=== PATIENT | female | born 1995 | race Hispanic/Latino ===

== ENCOUNTER 2023-02-27 15:18 | Emergency (ER) | payer OTHER, SELFPAY ==
[2023-02-27 15:21] VITALS: BP 121/69; PULSE 85; RESP 16; TEMP 36.6; O2SAT 97; BMI 29.9
[2023-02-27 16:40] LABS: Alanine Aminotransferase 13 IU/L (<35)
[2023-02-27 17:12] LABS: Hepatitis B Surface Antigen NEGATIVE s/c (NEGATIVE)
[2023-02-27 17:29] LABS: HIV 1 & 2 Ab/Ag 4th Gen Combo NEGATIVE (NEGATIVE); Hep C Virus Ab w/Reflex Quant NEGATIVE s/c (NEGATIVE)
--- NOTE | 2023-02-27 17:59 | ED_ITS ---
HPI - General Adult <JULIO C Martínez - Last Filed: 02/27/23 19:08> General Chief complaint: Blood/Body fluid exposure Stated complaint: Exposure at work Time Seen by Provider: 02/27/23 17:43 Source: patient Mode of arrival: Ambulatory History of Present Illness HPI narrative: This is a 27-year-old female who presents the emergency department complaining of a needlestick injury today at work. 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 She states that this patient does not have any known medical history or can talus diseases. She comes in for post exposure lab draw, she has her employers paperwork completed and L and I paperwork completed. She denies history of any communicable diseases. Related Data Allergies Allergy/AdvReac Type Severity Reaction Status Date / Time No Known Drug Allergies Allergy Verified 02/27/23 15:26 Review of Systems <JULIO C Martínez - Last Filed: 02/27/23 19:08> Review of Systems ROS Unobtainable: All systems reviewed & are unremarkable except as noted in HPI and below Patient History <JULIO C Martínez - Last Filed: 02/27/23 19:08> Social History Smoking Status: Never smoker Smoking Status: Never smoker alcohol intake frequency: 0-2 drinks per day Substance Use Type: does not use Exam <JULIO C Martínez - Last Filed: 02/27/23 19:08> Narrative Exam Narrative: Reviewed vitals signs and nursing notes. General: Pleasant, sitting upright, in no acute distress, well groomed, afebrile HEENT: symmetrical facial expressions, moist mucous membranes, neck is supple CV: regular rate and rhythm, warm extremities Respiratory: normal work of breathing, without tachypnea or hypoxia. GI: abdomen soft, nondistended, without CVA tenderness bilaterally. MSK: moves all extremities, no weakness, normal tone, ambulatory without deficit Skin: brisk capillary refill, without rash, right hand with a very tiny puncture site that she states bled initially but no longer Neuro: clear speech and normal cognition, A&O x3, GCS 15, no focal motor or sensation deficits Initial Vital Signs Initial Vital Signs: Vital Signs Temperature 97.9 F 02/27/23 15:21 Pulse Rate 85 02/27/23 15:21 Respiratory Rate 16 02/27/23 15:21 Blood Pressure 121/69 02/27/23 15:21 Pulse Oximetry 97 02/27/23 15:21 Oxygen Delivery Method Room Air 02/27/23 15:21 <Kriss Sood DO - Last Filed: 03/09/23 01:35> Initial Vital Signs Initial Vital Signs: Vital Signs Temperature 97.9 F 02/27/23 15:21 Pulse Rate 85 02/27/23 15:21 Respiratory Rate 16 02/27/23 15:21 Blood Pressure 121/69 02/27/23 15:21 Pulse Oximetry 97 02/27/23 15:21 Oxygen Delivery Method Room Air 02/27/23 15:21 Course <JULIO C Martínez - Last Filed: 02/27/23 19:08> Orders Ordered: ED Orders 02/27/23 16:05 Alanine Aminotransferase Stat HIV 1 & 2 Ab/Ag 4th Gen Combo Stat Hep C Virus Ab w/Reflex Quant Stat Hepatitis B Surface Antigen Stat Vital Signs Vital signs: Vital Signs - 8 hr 02/27/23 15:21 02/27/23 18:00 Temperature 97.9 F Pulse Rate 85 83 Respiratory Rate 16 14 Blood Pressure 121/69 137/72 Pulse Oximetry 97 98 Oxygen Delivery Method Room Air Room Air <Kriss Sood DO - Last Filed: 03/09/23 01:35> Orders Ordered: ED Orders 02/27/23 16:05 Alanine Aminotransferase Stat HIV 1 & 2 Ab/Ag 4th Gen Combo Stat Hep C Virus Ab w/Reflex Quant Stat Hepatitis B Surface Antigen Stat Vital Signs Vital signs: Vital Signs - 8 hr 02/27/23 15:21 02/27/23 18:00 Temperature 97.9 F Pulse Rate 85 83 Respiratory Rate 16 14 Blood Pressure 121/69 137/72 Pulse Oximetry 97 98 Oxygen Delivery Method Room Air Room Air Medical Decision Making <JULIO C Martínez - Last Filed: 02/27/23 19:08> Lab Data Labs: Lab Results 02/27/23 02/27/23 02/27/23 Range/Units 16:05 16:05 16:05 ALT 13 (<35) IU/L Hep Bs Antigen Negative (NEGATIVE) s/c Hep Bs Antibody Reactive (.) Hepatitis C Antibody Negative (NEGATIVE) s/c HIV 1&2 Ab/P24 Ag 4thGn Negative (NEGATIVE) MDM Narrative Medical decision making narrative: Chief Complaint: Needlestick exposure to body fluid Multiple etiologies for patient's complaint considered including, but not limited to: Needlestick exposure to communicable disease, needlestick without exposure I have independently reviewed the patient's vital signs and nursing notes as well as prior records if available. Plan: Patient's post exposure prophylaxis paperwork completed, L and I paperwork completed, claim number [id number]. Please see patient's employee post exposure prophylaxis paperwork. Her lab work is unremarkable, the hepatitis-B antibody is still pending, she will be notified if this is abnormal. Social considerations that may affect disposition: none Questions are addressed and there is agreement with the plan and for follow-up. I consulted with the ED attending physician Dr. Sood as needed for higher level of care considerations and they were available for discussion and recommendations regarding plan of care and diagnostic testing. Patient is appro priate for outpatient management. <Kriss Sood, DO - Last Filed: 03/09/23 01:35> Lab Data Labs: Lab Results 02/27/23 02/27/23 02/27/23 Range/Units 16:05 16:05 16:05 ALT 13 (<35) IU/L Hep Bs Antigen Negative (NEGATIVE) s/c Hep Bs Antibody Reactive (.) Hepatitis C Antibody Negative (NEGATIVE) s/c HIV 1&2 Ab/P24 Ag 4thGn Negative (NEGATIVE) Discharge Plan Departure Patient Disposition: Home Clinical Impression: Employee exposure to body fluids Instructions: DI for Accidental Exposure to Body Fluids Activity Restrictions/Additional Instructions: *You have been diagnosed with post sharp body fluid exposure and all of your labs thus far have come back negative. ALT is 13 (normal) hep B antigen still pending, hep C antibody is negative, HIV 1 and 2 antibody are negative. 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 If you develop symptoms of illness, jaundice, or feeling ill following this exposure half come back to the hospital for evaluation. Use your claim number for L [place]: [id number] *What to do: *Please continue to take your regular medications as directed [ ] New medication prescriptions sent to your pharmacy: [ ] [ ] New medication written as a paper prescription [ x] No new medications given *Please call and schedule follow up with your primary care provider in 2-3 days, at least for an update. Let them know you were seen in the Emergency Department for the above problem. We will electronically transmit a record of today's note if your PCP or specialist is in our system. *If you do not have a primary care provider please contact [phone] to establish care with one of the [facility] primary care providers. *Return to the Emergency Department for worsening symptoms, inability to keep liquids down, fever greater than 101F, chills, or other concerning symptom. Stand Alone Forms: Patient Portal/API <Kriss Sood DO - Last Filed: 03/09/23 01:35> Cosign ED Attending Mylene Attestation: I was immediately available in the department for consultation. Documentation has been reviewed.
[2023-02-27 18:00] VITALS: BP 137/72; PULSE 83; RESP 14; O2SAT 98
[2023-03-01 05:53] LABS: Hepatitis B Surf Ab Qualitativ Reactive (.)
== END 2023-02-27 18:08 | disposition home or self-care (01) ==
PROVIDERS: Emergency Medicine; Emergency Provider Nurse Practitioner Critical Care Medicine
DX: Z77.21 Contact with and (suspected) exposure to potentially hazardous body fluids (principal); W46.1XXA Contact with contaminated hypodermic needle, initial encounter; Y99.0 Civilian activity done for income or pay
CPT/HCPCS: 84460; 86706; 86803; 87340; 87389; 99281; 99283

== ENCOUNTER → 2024-01-30 12:35 | Outpatient (CLI) | payer OTHER, SELFPAY ==
[2024-01-30 13:42] LABS: Add Manual Diff / Slide Review NO; Basophils Absolute Auto 100 /uL (0-100); Basophils Percent Auto 0.7 % (0-2); Eosinophils Absolute Auto 100 /uL (0-450); Eosinophils Percent Auto 1.3 % (2-4); Hematocrit 34.5 % (36-46); Hemoglobin 11.9 g/dL (12.0-16.0); Lymphocytes Absolute Auto 2200 /uL (1100-4500); Lymphocytes Percent Auto 22.3 % (25-40); Mean Corpuscular HGB Conc 34.3 % (30-36); Mean Corpuscular Volume 96.3 fL (80-100); Monocytes Absolute Auto 500 /uL (0-900); Monocytes Percent Auto 4.7 % (3-14); Neutrophils Absolute Auto 7000 /uL (1500-7000); Platelet Count 282 X10^3/uL (150-400); Red Blood Cell Count 3.59 X10^6/uL (4.0-5.2); Red Cell Distribution Width 13.6 % (11.6-14.8); White Blood Cell Count 9.8 X10^3/uL (4.5-11.0)
[2024-01-30 13:48] LABS: Appearance Urine UA CLEAR; Bilirubin Urine UA NEGATIVE (NEGATIVE); Color Urine UA YELLOW; Glucose Urine UA NEGATIVE (Negative); Ketones Urine UA NEGATIVE (NEGATIVE); Leukocyte Esterase Urine UA TRACE (NEGATIVE); Nitrite Urine UA NEGATIVE (Negative); Occult Blood Urine UA NEGATIVE (Negative); Protein Urine UA NEGATIVE (Negative); Urobilinogen Urine UA 0.2 E.U./dL (0.2)
[2024-01-30 14:01] LABS: Natera Collection Specimen Collected
[2024-01-30 14:08] LABS: Bacteria Urine Moderate (10-30); Culture Indicated Urine Cult Not Indicated; RBC Urine None Seen (0-5/HPF); Squamous Epithelial Cell Urine 1-5 /HPF (0-5/HPF); Urine Volume 10mL (spun); WBC Urine 0-1/HPF (0-5/HPF)
[2024-01-30 20:39] LABS: Hepatitis B Surface Antigen NEGATIVE s/c (NEGATIVE); Rubella Antibody IgG 5.9 IU/mL (>15)
[2024-01-30 20:57] LABS: HIV 1 & 2 Ab/Ag 4th Gen Combo NEGATIVE (NEGATIVE); Hep C Virus Ab w/Reflex Quant NEGATIVE s/c (NEGATIVE)
[2024-01-31 08:09] LABS: RPR Screen Non Reactive (Non Reactive)
[2024-01-31 11:36] LABS: Varicella IgG Antibody 425 index (Immune >165)
== END ==
LOC: LAB 12:37
PROVIDERS: Referring Provider Family Medicine; Visit Provider Family Medicine
DX: O99.341 Other mental disorders complicating pregnancy, first trimester (principal)
CPT/HCPCS: 36415; 80055; 81003; 81015; 86787; 86803; 86850; 86900; 86901; 87086; 87389

== ENCOUNTER → 2024-02-27 12:06 | Outpatient (CLI) | payer OTHER, SELFPAY | PROVIDERS: PCP Family Medicine; Visit Provider Family Medicine | DX: Z34.00 Encounter for supervision of normal first pregnancy, unspecified trimester (principal) | CPT/HCPCS: 87210 ==

== ENCOUNTER → 2024-03-17 12:02 | Outpatient (CLI) | payer OTHER, SELFPAY ==
--- NOTE | 2024-03-17 12:03 | DI.US.S_ITS ---
PROCEDURE: US OB LIMITED INDICATIONS: ANATOMY OUTSIDE/PRIOR DATING DATA: Reported ANASTACIO is 08/26/2024. First dating scan is not available. TECHNIQUE: Real-time scanning was performed of the fetus, with image documentation. COMPARISON: None. FINDINGS: A single living intrauterine gestation is present. Presentation: Breech. Placenta: Placental position is anterior, without previa. Amniotic fluid index: 10.2 cm, normal range is 5-24 cm. Single deepest vertical pocket is 3.7 cm. heart rate: 144 beats per minute. Maternal cervical canal: 3.4 cm long. Normal lower limit is 2.5 cm. Clinically estimated gestational age: 16 weeks and 6 days Estimated gestational age from initial scan: 15 weeks and 6 days. BPD is 2.9 cm, 15 weeks and 2 days Head circumference is 11.7 cm, 15 weeks and 5 days, Abdominal circumference is 9.8 cm, 15 weeks and 6 days Femur length is 2.1 cm, 16 weeks and 2 days EFW is 143 g, 7th percentile There is a cystic space posterior to this occiput, that may contain cranial membranes. 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 Differential includes a cystic hygroma, though less likely as a osseous defect is suspected. MFM consultation is recommended. Further anatomic imaging also recommended for possible other abnormalities. This was marked in PACS as a result for communication and follow-up. Dictated by: Scotty Palmer M.D. on 03/17/2024 at 13:33 Approved by: Scotty Palmer M.D. on 03/17/2024 at 13:38
== END ==
PROVIDERS: PCP Family Medicine; Referring Provider Family Medicine; Visit Provider Family Medicine
DX: O32.1XX0 Maternal care for breech presentation, not applicable or unspecified (principal); Z3A.16 16 weeks gestation of pregnancy
CPT/HCPCS: 76815